=== PATIENT | male | born 1990 | race African-American/Black ===

== ENCOUNTER 2017-12-05 21:52 | Emergency (ER) | payer SELFPAY ==
--- NOTE | 2017-12-05 22:23 | RAD ---
RIGHT SHOULDER THREE VIEWS: HISTORY: Right shoulder pain. FINDINGS: Acromioclavicular and glenohumeral alignment are maintained. No acute fracture, dislocation, or aggr essive osseous erosions. IMPRESSION: No acute osseous abnormalities are demonstrated. POS: [facility]
== END 2017-12-05 23:06 | disposition home or self-care (01) ==
LOC: ERS 21:52
DX: M70.812 Other soft tissue disorders related to use, overuse and pressure, left shoulder (principal); M70.811 Other soft tissue disorders related to use, overuse and pressure, right shoulder

== ENCOUNTER 2022-02-03 09:03 | Emergency (ER) | payer SELFPAY ==
[2022-02-03] MEDS ORDERED: Bicillin LA 2.4 MILL.UNITS/4 ML SYRINGE ONE (09:32)
[2022-02-03] MEDS ORDERED: Dexamethasone 4 MG TAB ONE (09:32)
== END 2022-02-03 09:56 | disposition home or self-care (01) ==
LOC: ERS 09:03
DX: J02.0 Streptococcal pharyngitis (principal)
CPT/HCPCS: 96372; 99282; J0561; J8540

== ENCOUNTER 2022-05-21 09:23 | Emergency (ER) | payer BC, SELFPAY | END 2022-05-21 09:43 | disposition home or self-care (01) | LOC: ERS 09:23 | DX: M25.511 Pain in right shoulder (principal); X50.3XXA Overexertion from repetitive movements, initial encounter | CPT/HCPCS: 99283 ==

== ENCOUNTER 2022-08-09 09:01 | Emergency (ER) | payer BC ==
[2022-08-09] MEDS ORDERED: Iopamidol-370 76% 500 ML MDV (1 ML CHARGE) ONE (09:12)
[2022-08-09] MEDS ORDERED: Ketorolac Tromethamine 30 MG/ML VIAL ONE (10:34)
[2022-08-09] MEDS ORDERED: Dexamethasone 10 MG/ML VIAL ONE (10:34)
[2022-08-09] MEDS ORDERED: Bicillin LA 1.2 MILLION UNITS/2 ML SYRINGE ONE (10:34)
[2022-08-09] MEDS ORDERED: Clindamycin/D5W 600 mg/50 ml Premix Bag ONE (10:59)
[2022-08-09 11:26] LABS: #Lymphocytes 1.3 thou/uL (1.20-3.40); #Neutrophils 6.6 thou/uL (1.40-6.50); %Basophils 0.5 % (0.0-1.0); %Eosinophils 0.3 % (0.0-10.0); %Lymphocytes 14.6 % (21.0-51.0); %Monocytes 11.4 % (0.0-10.0); %Neutrophils 73.2 % (42.0-75.0); Hemoglobin 16.2 g/dL (14.0-18.0); Mean Corpuscular HGB CONC 31.8 g/dL (32.0-36.0); Mean Corpuscular Hemoglobin 26.8 pg (27.0-31.0); Mean Corpuscular Volume 84.1 fl (78.0-98.0); Mean Platelet Volume 7.9 fL (7.4-10.4); Platelet Count 249 10x3/uL (130-400); RBC Distribution Width 12.6 % (11.5-14.5); Red Blood Cell (RBC) Count 6.06 mill/uL (4.70-6.10); White Blood Cell (WBC) Count 9.1 10x3/uL (4.8-10.8)
[2022-08-09 11:46] LABS: ALT (SGPT) 22 U/L (8-55); AST (SGOT) 19 U/L (5-34); Albumin 4.5 g/dL (3.5-5.0); Alkaline Phosphatase 242 U/L (40-110); Anion Gap 17 mmol/L (10-20); BUN (Urea Nitrogen) 10 mg/dL (8.9-20.6); Bilirubin, Total 0.7 mg/dL (0.2-1.2); Calc. Creatinine Clearance 0 mL/min (70-130); Calcium 9.9 mg/dL (7.8-10.44); Carbon Dioxide 20 mmol/L (22-29); Chloride 103 mmol/L (98-107); Estimated GFR 103; Globulin 3.9 g/dL (2.4-3.5); Glucose 110 mg/dL (70-105); Potassium 4.4 mmol/L (3.5-5.1); Protein, Total 8.4 g/dL (6.0-8.3); Sodium 136 mmol/L (136-145)
[2022-08-09] MEDS ORDERED: HYDROcodone/Acetaminophen 10/325 mg Tablet ONE (14:50)
== END 2022-08-09 15:00 | disposition home or self-care (01) ==
LOC: ERS 09:01
DX: J36 Peritonsillar abscess (principal)
CPT/HCPCS: 70491; 80053; 85025; 87040; 87081; 87430; 96365; 96375; J0561; J1100; J1885; J3490; Q9967

== ENCOUNTER 2022-08-15 10:48 | Emergency (ER) | payer BC ==
[~2022-08-15 10:48] MED LIST: Iopamidol 370 76% 100 ML VIAL ONE
[2022-08-15 11:12] LABS: #Basophils 0.1 thou/uL (0.0-0.2); #Eosinphils 0.1 thou/uL (0.0-0.7); #Lymphocytes 2.1 thou/uL (1.20-3.40); #Monocytes 1.4 thou/uL (0.11-0.59); #Neutrophils 6.6 thou/uL (1.40-6.50); %Basophils 0.6 % (0.0-1.0); %Eosinophils 0.8 % (0.0-10.0); %Lymphocytes 20.6 % (21.0-51.0); %Monocytes 13.9 % (0.0-10.0); %Neutrophils 64.1 % (42.0-75.0); Hemoglobin 15.4 g/dL (14.0-18.0); Mean Corpuscular HGB CONC 32.4 g/dL (32.0-36.0); Mean Corpuscular Hemoglobin 27.4 pg (27.0-31.0); Mean Corpuscular Volume 84.3 fl (78.0-98.0); Mean Platelet Volume 7.2 fL (7.4-10.4); Platelet Count 300 10x3/uL (130-400); RBC Distribution Width 12.3 % (11.5-14.5); Red Blood Cell (RBC) Count 5.64 mill/uL (4.70-6.10); White Blood Cell (WBC) Count 10.3 10x3/uL (4.8-10.8)
[2022-08-15] MEDS ORDERED: Ketorolac Tromethamine 30 MG/ML VIAL ONE (11:33)
[2022-08-15] MEDS ORDERED: Dexamethasone 4 mg/ml Vial ONE (11:33)
[2022-08-15 11:35] LABS: ALT (SGPT) 40 U/L (8-55); AST (SGOT) 14 U/L (5-34); Alkaline Phosphatase 197 U/L (40-110); Anion Gap 13 mmol/L (10-20); BUN (Urea Nitrogen) 11 mg/dL (8.9-20.6); Bilirubin, Total 0.6 mg/dL (0.2-1.2); Calc. Creatinine Clearance 0 mL/min (70-130); Calcium 9.2 mg/dL (7.8-10.44); Carbon Dioxide 28 mmol/L (22-29); Chloride 100 mmol/L (98-107); Estimated GFR 104; Globulin 3.2 g/dL (2.4-3.5); Glucose 98 mg/dL (70-105); Potassium 4.3 mmol/L (3.5-5.1); Protein, Total 7.2 g/dL (6.0-8.3); Sodium 137 mmol/L (136-145)
[2022-08-15] MEDS ORDERED: Ampicillin/Sulbactam 3 GM in Sodium Chloride 0.9% 100 ML IVPB SCH (11:45)
[2022-08-15] MEDS ORDERED: Lidocaine 1% w/Epinephrine 1:100K 20 ML VIAL ONE ×2 (14:15→14:32)
== END 2022-08-15 15:40 | disposition home or self-care (01) ==
LOC: ERS 10:48
DX: J36 Peritonsillar abscess (principal)
CPT/HCPCS: 42700; 70491; 80053; 83605; 85025; 96374; 96375; J0295; J1100; J1885; J3490; Q9967